=== PATIENT | male | born 1980 | race African-American/Black ===

== ENCOUNTER 2017-10-31 00:55 | Emergency (ER) | payer SELFPAY ==
[~2017-10-31] VITALS: Ht 175.3 cm; Wt 97.5 kg
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
[2017-10-31] MEDS ORDERED: CLINDAMYCIN PHOS 600 MG/ 4 ML VIAL IM ONE (01:30)
== END 2017-10-31 01:39 | disposition home or self-care (01) ==
LOC: FSED 00:55
DX: L02.413 Cutaneous abscess of right upper limb (principal)
CPT/HCPCS: 87071; 87186; 87205; 96372; 99282